=== PATIENT | female | born 1990 | race American Indian/Alaskan Native ===

== ENCOUNTER 2021-03-17 23:05 | Emergency (ER) | payer BC ==
[2021-03-18 00:41] VITALS: BP 122/73
[2021-03-18] MEDS ORDERED: LIDOCAINE-MPF (1%) 10 MG/1 ML VIAL 5 ML INFILTRATI ONE (00:46)
[2021-03-18] MEDS ORDERED: TETANUS,DIPH,PERTUSS(ACELL) VACCINE 0.5 ML SYRINGE IM ONE ×2 (00:46→03:30)
[2021-03-18] MEDS ORDERED: IBUPROFEN 600 MG TAB PO ONE ×2 (00:46→03:04)
[2021-03-18] MEDS ORDERED: ACETAMINOPHEN 500 MG TAB PO ONE ×2 (00:47→03:06)
--- NOTE | 2021-03-18 02:37 | Emergency Department Report ---
Upper Extremity - HPI Chief Complaint: Laceration/Recheck/Suture Stated Complaint: LACERATION TO RIGHT FINGER Upper Extremity: Right Index Finger (Distal right index finger laceration and pain) Occurred When: Today Mechanism: Other (Accidentally cut distal right index finger with a knife) Severity: severe Symptoms: Yes Pain with Movement, Yes Laceration or Abrasion (Distal right index finger laceration), No Deformity, No Limited Range of Movement, No Numbness, No Weakness, No Swelling, No Bruising/Ecchymosis Other History: Patient is a 31-year-old -[place] female with no past medical history presents to the ED with complaint of acute onset persistent painful bleeding distal right index finger laceration wound after she accidenta lly cut her distal right index finger when cleaning a knife at home about 1 hour ago. Patient states that the bleeding and pain have been persistent despite her dressing at home. Patient states that she is not up-to-date with all her vaccinations. Patient denies numbness and tingling or weakness of right hand or right index finger, nausea, vomiting, dizziness, syncope, lightheadedness or fall. ED Review of Systems ROS: Stated complaint: LACERATION TO RIGHT FINGER Other details as noted in HPI Constitutional: denies: chills, fever Eyes: denies: eye pain, eye discharge, vision change ENT: denies: ear pain, throat pain Respiratory: denies: cough, shortness of breath, wheezing Cardiovascular: denies: chest pain, palpitations Endocrine: no symptoms reported Gastrointestinal: denies: abdominal pain, nausea, diarrhea Genitourinary: denies: urgency, dysuria, discharge Musculoskeletal: arthralgia (Right index finger pain due to bleeding laceration wound). denies: back pain, joint swelling Skin: other (Bleeding distal right index finger laceration wound). denies: rash, lesions Neurological: denies: headache, weakness, paresthesias Psychiatric: denies: anxiety, depression Hematological/Lymphatic: denies: easy bleeding, easy bruising ED Past Medical Hx - Past Medical History Previous Medical History?: No - Surgical History Past Surgical History?: No - Medications Home Medications: Home Medications Medication Instructions Recorded Confirmed Last Taken Type Ibuprofen [Motrin] 800 mg PO Q8HR PRN #30 tablet 03/18/21 Unknown Rx Sulfamethoxazole/Trimethoprim 1 each PO Q12H #20 tablet 03/18/21 Unknown Rx [Bactrim DS TAB] Upper Extremity Exam - Exam General: Vital signs noted. No distress. Alert and acting appropriately. Head and Torso: No HEENT Abnormality, No Neck Tenderness, No Chest/Lungs Abnormality, No Abdominal Tenderness, No Back Tenderness Shoulder Exam: Yes Normal Range of Motion in Shoulder, No Shoulder Tenderness, No Clavicle Tenderness, No Shoulder Deformity, No AC Joint Tenderness Arm Exam: No Arm/Humerus Tenderness, No Arm Deformity Elbow: Yes Normal Range of Motion in Elbow, No Elbow Tenderness, No Elbow Deformity Forearm: No Forearm Tenderness, No Forearm Deformity, No Pain with Pronation, No Pain with Supination Wrist: Yes Normal ROM in Wrist, No Wrist Tenderness, No Wrist Deformity, No Snuffbox Tenderness, No Pain with Axial Thumb Compression Hand: Yes Digit Tenderness (Distal right index finger tenderness due to a bleeding 5 cm laceration), Yes Normal ROM in Digit(s), No Hand Tenderness, No Hand Deformity, No Digit(s) Deformity, No Tendon Dysfunction CMS Exam: Yes Broken Skin (Distal right index finger bleeding 5 cm laceration wound), Yes Normal Distal Pulses, Yes Normal Capillary Refill, Yes Normal Distal Sensation ED Course Vital Signs 03/18/21 00:40 Temperature 97.5 F L Pulse Rate 92 H Respiratory 18 Rate Blood Pressure 122/73 [Right] O2 Sat by Pulse 99 Oximetry - Laceration /Wound Repair Right Distal Finger Wound Location: upper extremity (Distal right index finger laceration wound) Wound Length (cm): 5 Wound's Depth, Shape: superficial, linear Wound Explored: contaminated Irrigated w/ Saline (ccs): 200 Betadine Prep?: Yes Anesthesia: 1% Lidocaine Volume Anesthetic (ccs): 5 Wound Debrided: extensive Wound Repaired With: sutures Suture Size/Type: 4:0, proline Number of Sutures: 8 Layer Closure?: No Sterile Dressing Applied?: Yes Progress: The finger laceration wound was cleaned extensively with normal saline and Betadine solution. Lidocaine 1% solution was infiltrated as a digital block proximal to the distal location of the laceration wound. When anesthesia was fully achieved, the wound was sutured per protocol using Prolene follow-up sutures. Patient tolerated the procedure well. The wound was then dressed appropriately and the patient will discharge home on pain medications and prophylactic antibiotics. Patient was advised return to the ED in 12 to 14 days for suture removal or return to the ED immediately if symptoms get worse. Patient was otherwise advised to follow-up with her primary care physician in 7 to 10 days for reevaluation. ED Medical Decision Making - Medical Decision Making This is a 31-year-old -[place] female with no past medical history presents to the ED with complaint of acute onset persistent painful bleeding distal right index finger laceration wound after she accidentally cut her distal right index finger when cleaning a knife at home about 1 hour ago. Patient states that the bleeding and pain have been persistent despite her dressing at home. Patient states that she is not up-to-date with all her vaccinations. In the ED, patient is alert and oriented x3 and is not in any distress but appears been pain. Patient was treated for pain in the ED and also received booster tetanus vaccinations.The distal right index finger laceration wound was cleaned extensively with normal saline and Betadine solution. Lidocaine 1% solution was infiltrated as a digital block proximal to the distal location of the laceration wound. When anesthesia was fully achieved, the wound was sutured per protocol using Prolene follow-up sutures. Patient tolerated the procedure well. The wound was then dressed appropriately and the patient will discharge home on pain medications and prophylactic antibiotics. Patient was advised return to the ED in 12 to 14 days for suture removal or return to the ED immediately if symptoms get worse. Patient was otherwise advised to follow-up with her primary care physician in 7 to 10 days for reevaluation. - Differential Diagnosis Laceration; abrasion; puncture wound; finger contusion Critical care attestation.: If time is entered above; I have spent that time in minutes in the direct care of this critically ill patient, excluding procedure time. ED Disposition Clinical Impression: Laceration of right index finger w/o foreign body w/o damage to nail Qualifiers: Encounter type: initial encounter Qualified Code(s): S61.210A - Laceration without foreign body of right index finger without damage to nail, initial encounter Disposition: 01 HOME / SELF CARE / HOMELESS Is pt being admited?: No Does the pt Need Aspirin: No Condition: Stable Instructions: Sutured Wound Care, [id number], Laceration Care, Adult, [id number] Additional Instructions: Take medication with food, drink plenty of fluids and follow-up with your primary care physician in 7 to 10 days for reevaluation. Return to the ED immediately if symptoms get worse. Prescriptions: Sulfamethoxazole/Trimethoprim [Bactrim DS TAB] 1 each PO Q12H #20 tablet Ibuprofen [Motrin] 800 mg PO Q8HR PRN #30 tablet PRN Reason: Pain , Severe (7-10) Referrals: [facility] [Provider Group] - 7-10 days Time of Disposition: 02:39 Print Language: THAI
== END 2021-03-18 04:00 | disposition home or self-care (01) ==
LOC: ED 23:05
DX: S61.210A Laceration without foreign body of right index finger without damage to nail, initial encounter (principal); W26.0XXA Contact with knife, initial encounter; Y93.89 Activity, other specified; Y92.098 Other place in other non-institutional residence as the place of occurrence of the external cause; Y99.8 Other external cause status
CPT/HCPCS: 90471; 90715; 99282